=== PATIENT | male | born 1970 | race Caucasian/White ===

== ENCOUNTER 2017-06-21 16:50 | Emergency (ER) | payer MEDICAID ==
[2017-06-21 19:04] VITALS: BP 125/70
== END 2017-06-21 19:04 | disposition home or self-care (01) ==
LOC: ED 16:50
DX: T15.02XA Foreign body in cornea, left eye, initial encounter (principal); E78.5 Hyperlipidemia, unspecified; X58.XXXA Exposure to other specified factors, initial encounter; Y93.89 Activity, other specified; Y99.8 Other external cause status; Y92.89 Other specified places as the place of occurrence of the external cause

== ENCOUNTER 2017-10-22 16:35 | Emergency (ER) | payer MEDICAID ==
[~2017-10-22] VITALS: Ht 177.8 cm; Wt 73.9 kg
[2017-10-22 17:25] VITALS: Ht 177.8 cm; Wt 73.9 kg
[2017-10-22 21:49] LABS: UA SPECIFIC GRAVITY 1.015 (1.005-1.035); microscopic required? YES; urine erythrocyte 3+ (NEGATIVE)
[2017-10-22 22:45] VITALS: BP 127/80
== END 2017-10-22 22:45 | disposition home or self-care (01) ==
LOC: ED 16:35
PROVIDERS: Emergency Medicine
DX: N41.0 Acute prostatitis (principal); E78.00 Pure hypercholesterolemia, unspecified